=== PATIENT | female | born 1990 | race African-American/Black ===

== ENCOUNTER 2024-07-02 00:54 | Emergency (ER) | payer SELFPAY ==
[~2024-07-02] VITALS: Ht 170.2 cm; Wt 64.0 kg
[2024-07-02 00:57] VITALS: BP 136/80; PULSE 88; RESP 16; TEMP 98.6; O2SAT 99
== END 2024-07-02 02:51 ==
LOC: ER 00:54
DX: T74.21XA Adult sexual abuse, confirmed, initial encounter (principal); I10 Essential (primary) hypertension; X58.XXXA Exposure to other specified factors, initial encounter
CPT/HCPCS: 99283